=== PATIENT | male | born 1975 | race Caucasian/White ===

== ENCOUNTER 2023-06-24 07:44 | Observation (INO) | payer BC ==
[2023-06-23 09:44] VITALS: BMI 31.8
[2023-06-24] MEDS ORDERED: Oxymetazoline HCl 0.05% ( 15 ML ) ONE (08:54)
[2023-06-24 09:02] LABS: Hematocrit 47.8 % (38.8-50.0); Hemoglobin 16.2 g/dL (13.5-17.5); Mean Corpuscular HGB CONC 33.9 g/dL (32.0-36.0); Mean Corpuscular Hemoglobin 30.5 pg (27.0-33.0); Mean Platelet Volume 11.4 fl (7.4-10.4); Platelet Count 262 10x3/uL (150-450); RBC Distribution Width 14.1 % (11.5-14.5); Red Blood Cell (RBC) Count 5.31 10x6/uL (4.32-5.72); White Blood Cell (WBC) Count 9.8 10x3/uL (3.5-10.5)
[2023-06-24] MEDS ORDERED: Dexamethasone 4 mg/ml Vial ONE (09:08)
[2023-06-24] MEDS ORDERED: Fentanyl 250 MCG/5 ML VIAL ONE (09:08)
[2023-06-24] MEDS ORDERED: PROPOFOL 20 ML ONE ×2 (09:08)
[2023-06-24] MEDS ORDERED: Ondansetron PF 4 MG/2 ML Vial ONE (09:09)
[2023-06-24] MEDS ORDERED: Dexamethasone 20 MG/5 ML VIAL ONE (09:09)
[2023-06-24] MEDS ORDERED: Lidocaine 2% PF 5 ML VIAL ONE (09:09)
[2023-06-24 09:15] LABS: Anion Gap 20 mmol/L (10-20); BUN (Urea Nitrogen) 18 mg/dL (8.9-20.6); Calc. Creatinine Clearance 113 mL/min (70-130); Calcium 9.2 mg/dL (7.8-10.44); Carbon Dioxide 20 mmol/L (22-29); Chloride 104 mmol/L (98-107); Estimated GFR 76; Glucose 95 mg/dL (70-105); Potassium 4.1 mmol/L (3.5-5.1); Sodium 140 mmol/L (136-145)
[2023-06-24] MEDS ORDERED: Nitroglycerin 0.4 MG TAB (25 Tab Bottle) SL PRN (10:22)
[2023-06-24] MEDS ORDERED: Indomethacin 25 mg Capsule PO PRN (10:22)
[2023-06-24] MEDS ORDERED: Colchicine 0.6 MG TAB PO PRN (10:22)
[2023-06-24] MEDS ORDERED: ePHEDrine Sulfate 50 MG/10 ML VIAL ONE (11:01)
[2023-06-24] MEDS ORDERED: Sterile Water 20 ML ONE (11:23)
[2023-06-24] MEDS ORDERED: Glycopyrrolate 0.2 MG/ML 5 ML SYRINGE ONE (11:26)
[2023-06-24] MEDS ORDERED: Ondansetron ODT 4 MG TAB PO PRN (12:10)
[2023-06-24] MEDS ORDERED: Acetaminophen 325 MG TAB PO PRN (12:10)
[2023-06-24] MEDS ORDERED: Ondansetron PF 4 MG/2 ML Vial IVP PRN (12:10)
[2023-06-24] MEDS ORDERED: Guaifenesin DM 100-10/5 ML UDCUP PO PRN (12:10)
[2023-06-24] MEDS ORDERED: Oxymetazoline HCl 0.05% ( 15 ML ) NASAL PRN (12:13)
[2023-06-24] MEDS ORDERED: Acetaminophen/Codeine 30-300mg Tablet PO PRN ×2 (12:14)
[2023-06-24] MEDS ORDERED: fentaNYL 50 mcg/mL 1 mL Vial ONE (12:54)
[2023-06-24] MEDS: AMOXicillin 500 MG CAP PO SCH (14:00)
[2023-06-24] MEDS: AMOXicillin 250 MG CAP PO SCH ×2 (16:59→23:09)
[2023-06-24] MEDS: Sodium Chloride 0.65% Nasal 44 ML BOT EA NARE SCH (17:00)
[2023-06-24] MEDS: Allopurinol 300 MG TAB PO SCH (23:09)
[2023-06-25 07:34] VITALS: BP 129/78; TEMP 98.1
[2023-06-25] MEDS ORDERED: Lisinopril 20 MG TAB PO SCH (09:00)
[2023-06-25] MEDS ORDERED: Ezetimibe 10 MG TAB PO SCH (09:00)
== END 2023-06-25 07:53 | disposition home or self-care (01) ==
LOC: CSHSDC 07:44 → CSHTELE 07:52
PROVIDERS: ADMIT Otolaryngology Otolaryngic Allergy; ATTEND Otolaryngology Otolaryngic Allergy
PROC: 09BM8ZZ Excision of Nasal Septum, Via Natural or Artificial Opening Endoscopic (ICD-10-PCS; principal; 2023-06-25)
PROC: 09TL8ZZ Resection of Nasal Turbinate, Via Natural or Artificial Opening Endoscopic (ICD-10-PCS; 2023-06-25)
DX: J34.3 Hypertrophy of nasal turbinates (principal); J34.2 Deviated nasal septum; G47.33 Obstructive sleep apnea (adult) (pediatric); I10 Essential (primary) hypertension; I25.10 Atherosclerotic heart disease of native coronary artery without angina pectoris; E78.5 Hyperlipidemia, unspecified; I21.4 Non-ST elevation (NSTEMI) myocardial infarction; Z79.82 Long term (current) use of aspirin; Z79.899 Other long term (current) drug therapy; Z98.890 Other specified postprocedural states
CPT/HCPCS: 36415; 80048; 85027; J1100; J2001; J2405; J2704; J3010